=== PATIENT | female | born 1995 | race Hispanic/Latino ===

== ENCOUNTER 2019-02-25 09:57 | Outpatient (CLI) | payer OTHER ==
--- NOTE | 2019-02-25 10:11 | RAD ---
Portable chest radiograph: 02/25/2019 COMPARISON: None available HISTORY:Cough, chest pain FINDINGS: No pneumothorax or pleural fluid. No focal consolidation or alveolar edema. Heart and media stinal contours are grossly unremarkable. IMPRESSION: No focal consolidation or evidence of pulmonary edema.
== END 2019-02-25 09:58 | disposition home or self-care (01) ==
LOC: BICRAD 09:57
PROVIDERS: ATTEND Family Medicine
DX: J18.9 Pneumonia, unspecified organism (principal); R07.9 Chest pain, unspecified
CPT/HCPCS: 71045

== ENCOUNTER 2020-02-13 07:35 | Inpatient (IN) | payer BC, OTHER ==
[2020-02-13 07:49] VITALS: BMI 23.6
[2020-02-13] MEDS ORDERED: hydrALAZINE 20 MG/ML VIAL SLOW IVP PRN ×3 (08:16→18:46)
[2020-02-13] MEDS ORDERED: Lidocaine 2% MPF 10 ML AMP (For Epidural Use) ONE (08:27)
[2020-02-13] MEDS ORDERED: Lidocaine 1% (PF) 30 ML VIAL SC PRN (10:23)
[2020-02-13] MEDS ORDERED: Butorphanol Tartrate 1 MG/ML VIAL SLOW IVP PRN (10:23)
[2020-02-13] MEDS ORDERED: Ondansetron PF 4 MG/2 ML Vial IVP PRN ×3 (10:23→18:46)
[2020-02-13] MEDS ORDERED: NS / Oxytocin 40 units/1000ml 1,000 ML IV PRN (10:23)
[2020-02-13] MEDS ORDERED: HYDROcodone/Acetaminophen 5/325 mg Tablet PO PRN ×2 (10:23→18:46)
[2020-02-13] MEDS ORDERED: Ibuprofen 800 MG TAB PO PRN (10:23)
[2020-02-13] MEDS: Lactated Ringer's 1,000 ML IV SCH (10:30)
[2020-02-13 11:15] LABS: Hemoglobin 11.5 g/dL (12.0-16.0); Mean Corpuscular HGB CONC 33.9 g/dL (32.0-36.0); Mean Corpuscular Hemoglobin 31.4 pg (27.0-31.0); Mean Corpuscular Volume 92.8 fL (78.0-98.0); Mean Platelet Volume 11.8 fL (7.4-10.4); Platelet Count 142 thou/uL (130-400); RBC Distribution Width 13.9 % (11.5-14.5); Red Blood Cell (RBC) Count 3.68 mill/uL (4.20-5.40); White Blood Cell (WBC) Count 8.4 thou/uL (4.8-10.8)
[2020-02-13] MEDS ORDERED: Fentanyl 4 mcg/Bup 0.1% Cadd 100 ML ONE (11:25)
[2020-02-13 11:55] LABS: Hep B Surf Ag Non-Reactive S/CO (NonReactive); Syphilis Antibody Nonreactive (Nonreactive); Syphilis Antibody Index 0.03 S/CO (<1.00 Non-Reactive)
[2020-02-13] MEDS ORDERED: Lactated Ringer's 500 ML IV PRN (12:08)
[2020-02-13] MEDS ORDERED: Promethazine HCl 25 MG/ML VIAL IM PRN (12:08)
[2020-02-13] MEDS ORDERED: Acetaminophen 325 MG TAB PO PRN (12:08)
[2020-02-13] MEDS ORDERED: EPHEDRINE 25 MG/5 ML SYRINGE SLOW IVP PRN (12:08)
[2020-02-13] MEDS ORDERED: diphenhydrAMINE 50 MG/ML VIAL IVP PRN (12:08)
[2020-02-13] MEDS ORDERED: Naloxone HCl 0.4 mg/ml Vial IVP PRN ×2 (12:08)
[2020-02-13] MEDS ORDERED: Fentanyl 4 mcg/Bupivacaine 0.1% Cassette 100 ML EPIDURAL SCH (12:15)
[2020-02-13] MEDS ORDERED: Communication Order-Pharmacy FS SCH (12:15)
[2020-02-13] MEDS ORDERED: NS w/ Oxytocin 10 units 500 ML ONE (12:43)
[2020-02-13] MEDS ORDERED: NS w/ Oxytocin 10 units 500 ML IV SCH (12:45)
--- NOTE | 2020-02-13 17:33 | PDOC.LDHP ---
Labor and Delivery H&P Chief complaint: contractions HPI: 24yo at 39w2d by LMP here with painful contractions and cervical change Current gestational age (weeks): 39 Dating criteria: last menstrual period Grav: 1 Para: 0 Current complications: none Abnormal US findings: No Past Medical History: denies Current medications: pre- vitamins Previous surgical history: none Allergies/Adverse Reactions: Allergies Allergy/AdvReac Type Severity Reaction Status Date / Time Cephalosporins Allergy Verified 02/13/20 07:43 Penicillins Allergy Verified 02/13/20 07:43 Sulfa (Sulfonamide Allergy Verified 02/13/20 07:43 Antibiotics) Social history: none - Physical Exam Vital signs reviewed and normal: yes General: NAD Heart: RRR Lungs: CTAB Abdomen: gravid Extremeties: no edema FHT: category 1 [place] contractions every: 3min - Vaginal Exam cm dilated: 10 Effacement: 100% Station: 3+ - OB Labs RH: positive Antibody Screen: negative HIV: negative RPR: negative HEPSAg: negative 1 hour GCT: negative GBS: negative Urine drug screen: negative Rubella: immune - Assessment L&D Assessment: term patient in labor - Plan Plan: admit to L&D, labor augmentation if indicated, informed consent obtained, anesthesia consult for pain management
--- NOTE | 2020-02-13 17:34 | PDOC.OPDEL ---
OB Operative/Delivery Note Delivery Dr/Surgeon: Leo Assist: n/a Pre-Delivery Diagnosis: active labor Procedure/Post Delivery Dx: spontaneous vaginal delivery Weeks gestation: 39 Anesthesia: epidural - Findings A Sex: female - 1 min: 9 - 5 min: 9 - Additional Findings/Plan Placenta delivered: spontaneous Repaired Obstetrical Laceration: 2nd degree Estimated blood loss: 701 (bleeding from lac) Compilations/Other Findings: NC x 1 delivered through Post delivery plan: routine recovery
[2020-02-13] MEDS ORDERED: diphenhydrAMINE 25 MG CAP PO PRN (18:46)
[2020-02-13] MEDS ORDERED: Lanolin Ointment 7 GM TUBE TOP PRN (18:46)
[2020-02-13] MEDS ORDERED: Bisacodyl 10 MG SUPP PR PRN (18:46)
[2020-02-13] MEDS ORDERED: NS / Oxytocin 40 units/1000ml 1,000 ML IV SCH (18:46)
[2020-02-13] MEDS ORDERED: Benzocaine-Menthol 82.5 ML CAN TOP PRN (18:46)
[2020-02-13] MEDS ORDERED: Preparation H Ointment 28 GM TUBE PR PRN (18:46)
[2020-02-13] MEDS ORDERED: Milk Of Magnesia 30 ML UDCUP PO PRN (18:46)
[2020-02-13] MEDS ORDERED: Adacel (T-DAP) 0.5 ML SYRINGE IM ONE (18:46)
[2020-02-13] MEDS: Ibuprofen 800 MG TAB PO SCH (20:52)
[2020-02-13] MEDS: Docusate Calcium (SURFAK) 240 MG CAP PO SCH (20:52)
[2020-02-14] MEDS: Lactated Ringer's 1,000 ML IV SCH (03:33)
[2020-02-14] MEDS: Ibuprofen 800 MG TAB PO SCH ×3 (05:22→21:51)
[2020-02-14 06:23] LABS: Hemoglobin 8.2 g/dL (12.0-16.0)
[2020-02-14] MEDS: Ferrous Sulfate 325 MG TAB PO SCH ×2 (08:49→16:19)
[2020-02-14] MEDS: Docusate Calcium (SURFAK) 240 MG CAP PO SCH ×2 (08:49→21:51)
[2020-02-14] MEDS: Prenatal Vitamin 1 TAB PO SCH (08:49)
--- NOTE | 2020-02-14 13:23 | PDOC.PP ---
Post Progress Note Post Day #: 1 PO intake tolerated: yes Flatus: yes Ambulation: yes Vital Signs (12 hours) Temp Pulse Resp BP Pulse Ox 02/14/20 07:28 99.2 F 82 20 107/67 99 02/14/20 05:25 97.8 F 85 17 109/74 Weight Weight 129 lb - Physical Examination General: NAD Respiratory: non-labored breathing Neurological: no gross focal deficits Psychiatric: normal affect Result Diagrams: 02/14/20 05:43 Additional Labs: Post Labs Blood Type A POSITIVE 02/13/20 11:07 Hep Bs Antigen Non-Reactive S/CO (NonReactive) 02/13/20 11:07 - Assessment/Plan PPD1 s/p TSVD VSSAF PPH hgb 11.5-->ebl 700-->hgb 8.2, acute blood loss anemia, asymptomatic, cont iron and pnv. Doing well ambulating voiding without difficulty Rh pos RImm Cont PP care
[2020-02-14] MEDS: HYDROcodone/Acetaminophen 5/325 mg Tablet PO PRN (16:18)
[2020-02-14] MEDS ORDERED: Witch Hazel-Glycerin 1 EACH JAR TOP PRN (22:01)
[2020-02-15] MEDS: Ibuprofen 800 MG TAB PO SCH ×2 (05:42→14:24)
[2020-02-15 07:47] VITALS: BP 114/65; TEMP 98.5
[2020-02-15] MEDS: HYDROcodone/Acetaminophen 5/325 mg Tablet PO PRN ×2 (08:51→16:29)
[2020-02-15] MEDS: Prenatal Vitamin 1 TAB PO SCH (08:51)
[2020-02-15] MEDS: Docusate Calcium (SURFAK) 240 MG CAP PO SCH (08:51)
[2020-02-15] MEDS: Ferrous Sulfate 325 MG TAB PO SCH ×2 (08:51→16:30)
--- NOTE | 2020-02-15 11:56 | PDOC.PP ---
Post Progress Note Post Day #: 2 PO intake tolerated: yes Flatus: yes Ambulation: yes Vital Signs (12 hours) Temp Pulse Resp BP Pulse Ox 02/15/20 07:45 98.5 F 86 20 114/65 98 Weight Weight 129 lb - Physical Examination General: NAD Respiratory: non-labored breathing Abdominal: no distention, appropriately TTP Fundus firm & at: umb-2 Skin: no rash Neurological: no gross focal deficits Psychiatric: normal affect Result Diagrams: 02/14/20 05:43 Additional Labs: Post Labs Blood Type A POSITIVE 02/13/20 11:07 Hep Bs Antigen Non-Reactive S/CO (NonReactive) 02/13/20 11:07 - Assessment/Plan PPD2 s/p TSVD VSSAF Acute blood loss anemia- asx, cont iron and pnv Pain controlled, DC with ibuprofen Lochia < menses Rh positive DC home FU 6w
== END 2020-02-15 17:25 | disposition home or self-care (01) | DRG 806 ==
LOC: EEVIPCON 07:35 → L&D/OP 07:35 → L&D 17:00 → 3SW 20:39
PROVIDERS: ADMIT Student in an Organized Health Care Education/Training Program; ATTEND Student in an Organized Health Care Education/Training Program
PROC: 10E0XZZ Delivery of Products of Conception, External Approach (ICD-10-PCS; principal; 2020-02-13)
PROC: 0KQM0ZZ Repair Perineum Muscle, Open Approach (ICD-10-PCS; 2020-02-13)
DX: O99.02 Anemia complicating childbirth (principal); D62 Acute posthemorrhagic anemia; Z37.0 Single live birth; Z3A.39 39 weeks gestation of pregnancy; O70.1 Second degree perineal laceration during delivery
CPT/HCPCS: 36415; 51702; 85014; 85018; 85027; 86780; 86850; 86900; 86901; 87340; 99285; J2001; J2590

== ENCOUNTER 2020-06-14 00:21 | Emergency (ER) | payer OTHER ==
[2020-06-14 01:34] LABS: HIV (1/2) Antibody/Antigen Non-Reactive (NonReactive); HIV 1/2 INDEX 0.22 S/CO (<1.00); Hep C IgG Ab Non-Reactive (NonReactive); Hep C Index 0.07 S/CO (0-0.79)
[2020-06-14 01:48] LABS: HBSAB Concentration 12.25 mIU/mL; Hep B Surf AB Reactive (NonReactive)
== END 2020-06-14 00:48 | disposition home or self-care (01) ==
LOC: ERS 00:21
DX: Z77.21 Contact with and (suspected) exposure to potentially hazardous body fluids (principal); J45.909 Unspecified asthma, uncomplicated
CPT/HCPCS: 36415; 86706; 86803; 87389; 99283